=== PATIENT | male | born 1955 | race Caucasian/White ===

== ENCOUNTER 2017-06-09 09:55 | Emergency (ER) | payer OTHER ==
[2017-06-09 12:11] VITALS: BP 148/86
[2017-06-09] MEDS ORDERED: Acetaminophen 325 MG Tab PO ONE (14:30)
--- NOTE | 2017-06-09 14:35 | EDM.PDOC ---
ED HPI GENERAL MEDICAL PROBLEM - General Chief Complaint: Headache Stated Complaint: SINKABLE EPISODE Time Seen by Provider: 06/09/17 11:39 Source of Information: Reports: Patient History Limitations: Reports: No Limitations - History of Present Illness INITIAL COMMENTS - FREE TEXT/NARRATIVE: This patient comes in complaining of a headache and a near syncopal episode. He describes the headache as a frontal headache he says he rarely ever has a headache and this is worse than anything he's ever had in his life. Headache started about 7:30 AM today. 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 He was standing at the time and suddenly he felt weak like he might pass out. He denied any chest pain or palpitations he denied any kind of flu symptoms. His blood sugar was taken while at work and was 111 area he does take warfarin and he had a blood clot and his left lung along time ago so he's been on warfarin for something like 10 years. Last INR checked about a month ago. He does have diabetes and takes metformin Frontal Headache Pain Score (Numeric/FACES): 6 - Related Data Allergies Allergy/AdvReac Type Severity Reaction Status Date / Time No Known Allergies Allergy Verified 06/09/17 11:04 Home Meds: Home Meds Brimonidine [Alphagan 0.2% Ophth Soln] 1 drop TOP Q12H 07/31/15 [History] Ranitidine HCl [Zantac 75] 75 mg PO ASDIRECTED PRN 07/31/15 [History] Warfarin [Coumadin] 1 tab PO DAILY 07/31/15 [History] metFORMIN HCl [Glucophage] 1,000 mg PO BID 07/31/15 [History] metroNIDAZOLE [metroNIDAZOLE 0.75% Cream] 1 dose TOP ASDIRECTED 07/31/15 [ History] Lisinopril [Lisinopril] 1 tab PO DAILY 06/09/17 [History] Omeprazole [Omeprazole] 1 tab PO DAILY 06/09/17 [History] PARoxetine [Paxil] 1 tab PO DAILY 06/09/17 [History] atorvaSTATin [Lipitor] 1 tab PO DAILY 06/09/17 [History] glipiZIDE [Glipizide ER] 1 tab PO DAILY 06/09/17 [History] Past Medical History HEENT History: Reports: Glaucoma, Impaired Vision Respiratory History: Reports: PE Gastrointestinal History: Reports: GERD Musculoskeletal History: Reports: Other (See Below) Other Musculoskeletal History: L side face fx r leg fx Neurological History: Reports: Brain Injury, Concussion, Head Trauma Psychiatric History: Reports: Mood Swings Endocrine/Metabolic History: Reports: Diabetes, Type II Hematologic History: Reports: Anticoagulation Therapy Dermatologic History: Reports: Other (See Below) Other Dermatologic History: Brown spot r rastafari - Infectious Disease History Infectious Disease History: Reports: Chicken Pox - Past Surgical History GI Surgical History: Reports: Esophageal Dilatation Musculoskeletal Surgical History: Reports: Knee Replacement, Other (See Below) Other Musculoskeletal Surgeries/Procedures:: surgery to right foot Social & Family History - Tobacco Use Smoking Status *Q: Never Smoker Second Hand Smoke Exposure: No - Recreational Drug Use Recreational Drug Use: No ED ROS GENERAL - Review of Systems Review Of Systems: See Below Constitutional: Reports: Weakness, Diaphoresis HEENT: Reports: No Symptoms Respiratory: Reports: No Symptoms Cardiovascular: Reports: No Symptoms. Denies: Chest Pain, Dyspnea on Exertion ( Medicare) Endocrine: Reports: No Symptoms GI/Abdominal: Reports: No Symptoms Musculoskeletal: Reports: No Symptoms Skin: Reports: No Symptoms Neurological: Reports: No Symptoms Psychiatric: Reports: No Symptoms Hematologic/Lymphatic: Reports: No Symptoms Immunologic: Reports: No Symptoms - Physical Exam Exam: See Below Exam Limited By: No Limitations General Appearance: Alert, WD/WN, Mild Distress Eye Exam: Bilateral Eye: EOMI, Normal Inspection, PERRL Ears: Normal TMs Nose: Normal Inspection Throat/Mouth: Normal Inspection Head Exam: Atraumatic Neck: Supple Respiratory/Chest: Lungs Clear Cardiovascular: Normal Peripheral Pulses, Regular Rate, Rhythm, No Murmur GI/Abdominal: Soft, Non-Tender Neuro Exam (Abbreviated): Alert, Oriented, CN II-XII Intact, Normal Cognition Back Exam: Normal Inspection Extremities: Normal Inspection Psychiatric: Normal Affect Skin Exam: Warm, Dry Course - Vital Signs Last Recorded V/S: Last Vital Signs Temp 36.8 C 06/09/17 11:02 Pulse 60 06/09/17 12:07 Resp 18 06/09/17 12:07 BP 148/86 H 06/09/17 12:07 Pulse Ox 99 06/09/17 12:07 - Orders/Labs/Meds Orders: Active Orders 24 hr Category Date Time Status EKG Documentation Completion [RC] ASDIRECTED Care 06/09/17 11:53 Active Chest 1V Frontal [CR] Urgent Exams 06/09/17 11:52 Taken Head wo Cont [CT] Stat Exams 06/09/17 12:49 Taken Acetaminophen [Tylenol] Med 06/09/17 14:30 Once 650 mg PO NOW ONE EKG 12 Lead [EK] Urgent Ther 06/09/17 11:52 Ordered Labs: Laboratory Tests 06/09/17 06/09/17 06/09/17 Range/Units 12:07 12:07 12:07 WBC 6.0 (4.5-11.0) K/uL RBC 4.68 (4.30-5.90) M/uL Hgb 13.6 (12.0-15.0) g/dL Hct 41.5 (40.0-54.0) % MCV 89 (80-98) fL MCH 29 (27-31) pg MCHC 33 (32-36) % Plt Count 284 (150-400) K/uL Neut % (Auto) 67 H (36-66) % Lymph % (Auto) 18 L (24-44) % [place] % (Auto) 10 H (2-6) % Eos % (Auto) 5 H (2-4) % Baso % (Auto) 1 (0-1) % PT (9.5-12.0) sec INR (0.80-1.20) D-Dimer, Quantitative 122 (0.0-400.0) ng/mL Sodium (140-148) mmol/L Potassium (3.6-5.2) mmol/L Chloride (100-108) mmol/L Carbon Dioxide (21-32) mmol/L Anion Gap (5.0-14.0) mmol/L BUN (7-18) mg/dL Creatinine (0.8-1.3) mg/dL Est Cr Clr Drug Dosing mL/min Estimated GFR (MDRD) (>60) Glucose (74-106) mg/dL Calcium (8.5-10.1) mg/dL Total Bilirubin (0.2-1.0) mg/dL AST (15-37) U/L ALT (12-78) U/L Alkaline Phosphatase (46-116) U/L Troponin I < 0.017 (0.000-0.056) ng/mL Total Protein (6.4-8.2) g/dL Albumin (3.4-5.0) g/dL Globulin (2.3-3.5) g/dL Albumin/Globulin Ratio (1.2-2.2) 06/09/17 06/09/17 Range/Units 12:07 12:07 WBC (4.5-11.0) K/uL RBC (4.30-5.90) M/uL Hgb (12.0-15.0) g/dL Hct (40.0-54.0) % MCV (80-98) fL MCH (27-31) pg MCHC (32-36) % Plt Count (150-400) K/uL Neut % (Auto) (36-66) % Lymph % (Auto) (24-44) % [place] % (Auto) (2-6) % Eos % (Auto) (2-4) % Baso % (Auto) (0-1) % PT 14.8 H (9.5-12.0) sec INR 1.37 H (0.80-1.20) D-Dimer, Quantitative (0.0-400.0) ng/mL Sodium 142 (140-148) mmol/L Potassium 5.0 (3.6-5.2) mmol/L Chloride 107 (100-108) mmol/L Carbon Dioxide 28 (21-32) mmol/L Anion Gap 7.3 (5.0-14.0) mmol/L BUN 18 (7-18) mg/dL Creatinine 1.2 (0.8-1.3) mg/dL Est Cr Clr Drug Dosing 61.75 mL/min Estimated GFR (MDRD) > 60 (>60) Glucose 84 (74-106) mg/dL Calcium 8.9 (8.5-10.1) mg/dL Total Bilirubin 0.2 (0.2-1.0) mg/dL AST 31 (15-37) U/L ALT 61 (12-78) U/L Alkaline Phosphatase 95 (46-116) U/L Troponin I (0.000-0.056) ng/mL Total Protein 7.2 (6.4-8.2) g/dL Albumin 3.7 (3.4-5.0) g/dL Globulin 3.5 (2.3-3.5) g/dL Albumin/Globulin Ratio 1.1 L (1.2-2.2) - Radiology Interpretation Free Text/Narrative:: Head CT showed no acute intracranial process. Chest x-ray showed normal heart size normal lung markings. Chest x-ray read by me - Re-Assessments/Exams Free Text/Narrative Re-Assessment/Exam: 06/09/17 14:35 EKG shows normal sinus rhythm at 62 bpm there are no ischemic changes. Free Text/Narrative Re-Assessment/Exam: 06/09/17 14:35 At time of discharge patient says his headache has eased up a lot but still there are little bit and would like some Tylenol Departure - Departure Time of Disposition: 14:36 Disposition: Home, Self-Care 01 Condition: Fair Clinical Impression: Migraine, Near syncope - Discharge Information Referrals: PCP,None [Primary Care Provider] - Additional Instructions: Continue all your usual medications. Use Tylenol as needed for the headache. Follow package instructions. Be sure to continue eating a well-balanced diet and check your blood sugar frequently. Your INR was a little bit low at 1.37 so you should talk to your doctor about whether or not your warfarin or Coumadin needs to be adjusted - My Orders Last 24 Hours: My Active Orders 06/09/17 11:52 Chest 1V Frontal [CR] Urgent EKG 12 Lead [EK] Urgent 06/09/17 11:53 EKG Documentation Completion [RC] ASDIRECTED 06/09/17 12:49 Head wo Cont [CT] Stat 06/09/17 14:30 Acetaminophen [Tylenol] 650 mg PO NOW ONE - Assessment/Plan Last 24 Hours: My Active Orders 06/09/17 11:52 Chest 1V Frontal [CR] Urgent EKG 12 Lead [EK] Urgent 06/09/17 11:53 EKG Documentation Completion [RC] ASDIRECTED 06/09/17 12:49 Head wo Cont [CT] Stat 06/09/17 14:30 Acetaminophen [Tylenol] 650 mg PO NOW ONE
--- NOTE | 2017-06-10 10:19 | CR ---
Chest 1V Frontal INDICATION: near syncope COMPARISON: 12/19/2007 FINDINGS: AP portable chest. Heart size normal. Lungs are clear. No pleural effusion.
== END 2017-06-09 14:55 | disposition home or self-care (01) ==
LOC: JP.ED 09:55
DX: G43.909 Migraine, unspecified, not intractable, without status migrainosus (principal); R55 Syncope and collapse; K21.9 Gastro-esophageal reflux disease without esophagitis; E11.9 Type 2 diabetes mellitus without complications; Z79.84 Long term (current) use of oral hypoglycemic drugs; Z79.899 Other long term (current) drug therapy
CPT/HCPCS: 36415; 70450; 71045; 80053; 84484; 85025; 85379; 85610; 93005; 99285; A9270

== ENCOUNTER 2018-11-29 09:23 | Emergency (ER) | payer OTHER ==
[2018-11-29 09:43] VITALS: BP 135/72; PULSE 59
--- NOTE | 2018-11-29 09:51 | EDM.PDOC ---
ED HPI GENERAL MEDICAL PROBLEM - General Chief Complaint: General Stated Complaint: LIGHT HEADED, DIZZINESS Time Seen by Provider: 11/29/18 09:30 Source of Information: Reports: Patient History Limitations: Reports: No Limitations - History of Present Illness INITIAL COMMENTS - FREE TEXT/NARRATIVE: 63-year-old male with chronic mild headaches and dizziness had started his shift but then developed a headache and dizziness and thought he should leave. He came into the emergency room for a work note for today and to be able to return tomorrow. His symptoms have basically resolved. He does not want to return to work today. This is an ongoing recurring symptom that has been worked up several times by his primary provider. He has no illness, fever, shortness of breath, chest pain or other complaint. Onset: Sudden (Symptoms started rather suddenly within the last 2 hours) Associated Symptoms: Reports: Headaches, Malaise, Other (Dizziness, lightheaded) . Denies: Confusion, Chest Pain, Cough, Diaphoresis Denies Pain Score (Numeric/FACES): 0 - Related Data Allergies Allergy/AdvReac Type Severity Reaction Status Date / Time No Known Allergies Allergy Verified 11/29/18 09:32 Home Meds: Home Meds Brimonidine [Alphagan 0.2% Ophth Soln] 1 drop TOP Q12H 07/31/15 [History] Ranitidine HCl [Zantac 75] 75 mg PO ASDIRECTED PRN 07/31/15 [History] Warfarin [Coumadin] 1 tab PO DAILY 07/31/15 [History] metFORMIN HCl [Glucophage] 1,000 mg PO BID 07/31/15 [History] metroNIDAZOLE [metroNIDAZOLE 0.75% Cream] 1 dose TOP ASDIRECTED 07/31/15 [ History] Lisinopril 1 tab PO DAILY 06/09/17 [History] Omeprazole 1 tab PO DAILY 06/09/17 [History] PARoxetine [Paxil] 1 tab PO DAILY 06/09/17 [History] atorvaSTATin [Lipitor] 1 tab PO DAILY 06/09/17 [History] glipiZIDE [Glipizide ER] 1 tab PO DAILY 06/09/17 [History] Past Medical History HEENT History: Reports: Glaucoma, Impaired Vision Respiratory History: Reports: PE Gastrointestinal History: Reports: GERD Musculoskeletal History: Reports: Other (See Below) Other Musculoskeletal History: L side face fx r leg fx Neurological History: Reports: Brain Injury, Concussion, Head Trauma Psychiatric History: Reports: Mood Swings Endocrine/Metabolic History: Reports: Diabetes, Type II Hematologic History: Reports: Anticoagulation Therapy Dermatologic History: Reports: Other (See Below) Other Dermatologic History: Brown spot r buddhist - Infectious Disease History Infectious Disease History: Reports: Chicken Pox - Past Surgical History GI Surgical History: Reports: Esophageal Dilatation Musculoskeletal Surgical History: Reports: Knee Replacement, Other (See Below) Other Musculoskeletal Surgeries/Procedures:: surgery to right foot Social & Family History - Tobacco Use Smoking Status *Q: Never Smoker Second Hand Smoke Exposure: No - Caffeine Use Caffeine Use: Reports: Energy Drinks, Tea - Alcohol Use Days Per Week of Alcohol Use: 0 - Recreational Drug Use Recreational Drug Use: No ED ROS GENERAL - Review of Systems Review Of Systems: See Below Constitutional: Reports: Malaise. Denies: Fever, Chills HEENT: Denies: Vision Change Respiratory: Denies: Shortness of Breath Cardiovascular: Denies: Chest Pain GI/Abdominal: Denies: Abdominal Pain, Nausea, Vomiting : Reports: No Symptoms Skin: Denies: Diaphoresis Neurological: Reports: Dizziness, Headache ED EXAM, GENERAL - Physical Exam Exam: See Below Exam Limited By: No Limitations General Appearance: Alert, No Apparent Distress Eye Exam: Bilateral Eye: Normal Inspection Head: Atraumatic Respiratory/Chest: No Respiratory Distress, Lungs Clear Cardiovascular: Regular Rate, Rhythm Extremities: Normal Inspection. No: Pedal Edema Neurological: Alert, Oriented, No Motor/Sensory Deficits, Other (Romberg is negative, no pronator drift) Psychiatric: Normal Affect, Normal Mood Course - Vital Signs Last Recorded V/S: Last Vital Signs Temp 97.3 F 11/29/18 09:45 Pulse 59 L 11/29/18 09:45 Resp 16 11/29/18 09:45 BP 135/72 11/29/18 09:45 Pulse Ox 97 11/29/18 09:45 - Re-Assessments/Exams Free Text/Narrative Re-Assessment/Exam: 11/29/18 09:50 Physically this patient looks healthy and can certainly return to work tomorrow. I told them I really don't have any physical reason for him to not work today if he wants to return but he elected not to. Departure - Departure Time of Disposition: 09:57 Disposition: Home, Self-Care 01 Condition: Good Clinical Impression: Dizziness Headache Qualifiers: Headache type: unspecified Headache chronicity pattern: acute headache Intractability: not intractable Qualified Code(s): R51 - Headache - Discharge Information Instructions: Dizziness, [id number] Referrals: PCP,None [Primary Care Provider] - Forms: ED Department Discharge Care Plan Goals: Return to work tomorrow unless still symptomatic. Rest today, increase diet and activity as tolerated.
== END 2018-11-29 09:57 | disposition home or self-care (01) ==
LOC: JP.ED 09:23
DX: R51 Headache (principal); R42 Dizziness and giddiness; K21.9 Gastro-esophageal reflux disease without esophagitis; E11.9 Type 2 diabetes mellitus without complications; Z79.84 Long term (current) use of oral hypoglycemic drugs; Z79.899 Other long term (current) drug therapy; Z79.01 Long term (current) use of anticoagulants
CPT/HCPCS: 99283

== ENCOUNTER 2019-04-11 09:55 | Emergency (ER) | payer OTHER ==
[2019-04-11 10:12] VITALS: BP 146/80; PULSE 87
[2019-04-11] MEDS ORDERED: Ondansetron 4 MG Tab.DIS PO ONE (10:23)
[2019-04-11] MEDS ORDERED: Ketorolac 60 MG/2 ML SDV IM ONE (10:24)
[2019-04-11] MEDS ORDERED: Acetaminophen/oxyCODONE 325-5 MG Tab PO STA (10:24)
--- NOTE | 2019-04-11 10:28 | EDM.PDOC ---
ED HPI GENERAL MEDICAL PROBLEM - General Chief Complaint: Flank Pain Stated Complaint: L FLANK PAIN Time Seen by Provider: 04/11/19 10:20 Source of Information: Reports: Patient, Old Records History Limitations: Reports: No Limitations - History of Present Illness INITIAL COMMENTS - FREE TEXT/NARRATIVE: 63 yo male here with constant L flank pain since last night. Has no hx of kidney stones. Denies fever, dysuria or hematuria. Has mild nausea. No pain with deep breathing or coughing. No rash. Pain not worse with movement. He took nothing for his pain before coming in today. No hx of shingles or the vaccine. No prior pain like this. Ate breakfast without issue today, no change in his appetite. Onset: Sudden Onset Date: 04/10/19 Duration: Hour(s):, Constant Location: Reports: Back (L flank) Quality: Reports: Ache Severity: Moderate Improves with: Reports: None Worsens with: Reports: None Context: Reports: Other (see HPI) Associated Symptoms: Reports: Nausea/Vomiting (no vomiting). Denies: Cough, Fever/Chills, Rash Treatments MOP MAKER: Reports: Other (see below) (none) Left Flank Pain Score (Numeric/FACES): 4 - Related Data Allergies Allergy/AdvReac Type Severity Reaction Status Date / Time No Known Allergies Allergy Verified 04/11/19 10:09 Home Meds: Home Meds Brimonidine [Alphagan 0.2% Ophth Soln] 1 drop TOP Q12H 07/31/15 [History] Ranitidine HCl [Zantac 75] 75 mg PO ASDIRECTED PRN 07/31/15 [History] Warfarin [Coumadin] 1 tab PO ASDIRECTED 07/31/15 [History] metFORMIN HCl [Glucophage] 1,000 mg PO BID 07/31/15 [History] metroNIDAZOLE [metroNIDAZOLE 0.75% Cream] 1 dose TOP ASDIRECTED 07/31/15 [ History] Lisinopril 1 tab PO DAILY 06/09/17 [History] PARoxetine [Paxil] 1 tab PO DAILY 06/09/17 [History] atorvaSTATin [Lipitor] 1 tab PO DAILY 06/09/17 [History] glipiZIDE [Glipizide ER] 1 tab PO DAILY 06/09/17 [History] Dulaglutide [Trulicity] 1.5 mg SQ WEEKLY 04/11/19 [History] Meloxicam [Mobic] 15 mg PO DAILY PRN #10 tablet 04/11/19 [Rx] Past Medical History HEENT History: Reports: Glaucoma, Impaired Vision Respiratory History: Reports: PE, Sleep Apnea Other Respiratory History: cpap Gastrointestinal History: Reports: GERD Musculoskeletal History: Reports: Back Pain, Chronic, Other (See Below) Other Musculoskeletal History: L side face fx r leg fx Neurological History: Reports: Brain Injury, Concussion, Head Trauma Psychiatric History: Reports: Mood Swings Endocrine/Metabolic History: Reports: Diabetes, Type II, Obesity/BMI 30+ Hematologic History: Reports: Anticoagulation Therapy Dermatologic History: Reports: Other (See Below) Other Dermatologic History: Brown spot r mormon - Infectious Disease History Infectious Disease History: Reports: Chicken Pox - Past Surgical History Head Surgeries/Procedures: Reports: None HEENT Surgical History: Reports: None Respiratory Surgical History: Reports: None GI Surgical History: Reports: Esophageal Dilatation Endocrine Surgical History: Reports: None Neurological Surgical History: Reports: Other (See Below) Musculoskeletal Surgical History: Reports: Knee Replacement, Other (See Below) Other Musculoskeletal Surgeries/Procedures:: surgery to right foot Dermatological Surgical History: Reports: None Social & Family History - Tobacco Use Smoking Status *Q: Never Smoker Second Hand Smoke Exposure: No - Caffeine Use Caffeine Use: Reports: Tea - Recreational Drug Use Recreational Drug Use: No ED ROS GENERAL - Review of Systems Review Of Systems: See Below Constitutional: Reports: No Symptoms HEENT: Reports: No Symptoms Respiratory: Reports: No Symptoms Cardiovascular: Reports: No Symptoms GI/Abdominal: Reports: Nausea. Denies: Abdominal Pain, Constipation, Diarrhea, Vomiting : Reports: No Symptoms Musculoskeletal: Reports: Back Pain Skin: Reports: No Symptoms Neurological: Reports: No Symptoms Psychiatric: Reports: No Symptoms ED EXAM,LOWER BACK PAIN/INJURY - Physical Exam Exam: See Below Exam Limited By: No Limitations General Appearance: Alert, WD/WN, No Apparent Distress, Obese Eye Exam: Bilateral Eye: Normal Inspection Ears: Hearing Grossly Normal Nose: Normal Inspection, No Blood Throat/Mouth: Normal Inspection, Normal Lips, Normal Oropharynx, Normal Voice, No Airway Compromise Head: Atraumatic, Normocephalic Neck: Normal Inspection Respiratory/Chest: No Respiratory Distress, Lungs Clear, Normal Breath Sounds, No Accessory Muscle Use, Other (no pain with coughing or deep breathing.) Cardiovascular: Regular Rate, Rhythm, No Edema GI/Abdominal: Normal Bowel Sounds, Soft, Non-Tender, No Distention Back Exam: Normal Inspection, Full Range of Motion (without increased pain). No : CVA Tenderness (R), CVA Tenderness (L), Decreased Range of Motion, Muscle Spasm, Paraspinal Tenderness, Vertebral Tenderness Extremities: Normal Inspection, Normal Range of Motion, Non-Tender, No Pedal Edema Neurological: Alert, Normal Mood/Affect, CN II-XII Intact, No Motor/Sensory Deficits, Oriented x 3 Psychiatric: Normal Affect, Normal Mood Skin Exam: Warm, Dry, Intact, Normal Color, No Rash, Other (no skin tenderness) Course - Vital Signs Last Recorded V/S: Last Vital Signs Temp 36.3 C 04/11/19 10:13 Pulse 87 04/11/19 10:13 Resp 16 04/11/19 10:13 BP 146/80 H 04/11/19 10:13 Pulse Ox 95 04/11/19 10:13 - Orders/Labs/Meds Orders: Active Orders 24 hr Category Date Time Status Iopamidol [Isovue-300 (61%)] Med 04/11/19 11:30 Active 100 ml IV . DIRECTED Sodium Chloride 0.9% [Normal Saline] 100 ml Med 04/11/19 11:30 Active IV ASDIRECTED Medication Orders Sodium Chloride (Normal Saline) 100 mls @ 3 mls/sec IV ASDIRECTED FRANKY Last Admin: 04/11/19 11:42 Dose: 3 mls/sec Iopamidol (Isovue-300 (61%)) 100 ml IV . DIRECTED FRANKY Last Admin: 04/11/19 11:42 Dose: 100 ml Labs: Laboratory Tests 04/11/19 04/11/19 04/11/19 Range/Units 10: 10:34 10:34 WBC 5.4 (4.5-11.0) K/uL RBC 4.55 (4.30-5.90) M/uL Hgb 13.9 (12.0-15.0) g/dL Hct 41.8 (40.0-54.0) % MCV 92 (80-98) fL MCH 31 (27-31) pg MCHC 33 (32-36) % Plt Count 305 (150-400) K/uL Sodium 133 L (140-148) mmol/L Potassium 4.5 (3.6-5.2) mmol/L Chloride 99 L (100-108) mmol/L Carbon Dioxide 26 (21-32) mmol/L Anion Gap 12.5 (5.0-14.0) mmol/L BUN 18 (7-18) mg/dL Creatinine 1.3 (0.8-1.3) mg/dL Est Cr Clr Drug Dosing 57.41 mL/min Estimated GFR (MDRD) 56 L (>60) Glucose 195 H (74-106) mg/dL Calcium 9.1 (8.5-10.1) mg/dL Urine Color Yellow (YELLOW) Urine Appearance Clear (CLEAR) Urine pH 5.5 (5.0-8.0) Ur Specific [place] > 1.030 (1.008-1.030) Urine Protein Trace H (NEGATIVE) mg/dL Urine Glucose (UA) 250 H (NEGATIVE) mg/dL Urine Ketones Negative (NEGATIVE) mg/dL Urine Occult Blood Negative (NEGATIVE) Urine Nitrite Negative (NEGATIVE) Urine Bilirubin Negative (NEGATIVE) Urine Urobilinogen 0.2 (0.2-1.0) EU/dL Ur Leukocyte Esterase Negative (NEGATIVE) Urine RBC Not seen (0-5) Urine WBC Not seen (0-5) Ur Epithelial Cells Rare Amorphous Sediment Rare Urine Bacteria Not seen Urine Mucus Not seen Meds: Medications Generic Name Dose Route Start Last Admin Trade Name Freq PRN Reason Stop Dose Admin Sodium Chloride 100 mls @ 3 mls/sec 04/11/19 11:30 04/11/19 11:42 Normal Saline IV 3 mls/sec ASDIRECTED FRANKY Administration Iopamidol 100 ml 04/11/19 11:30 04/11/19 11:42 Isovue-300 (61%) IV 100 ml . DIRECTED FRANKY Administration Discontinued Medications Generic Name Dose Route Start Last Admin Trade Name Freq PRN Reason Stop Dose Admin Sodium Chloride 500 mls @ 1,000 mls/hr 04/11/19 11:20 Normal Saline IV 04/11/19 11:49 .BOLUS ONE Ketorolac Tromethamine 60 mg 04/11/19 10:24 Toradol IM 04/11/19 10:25 ONETIME ONE Ketorolac Tromethamine 30 mg 04/11/19 10:33 04/11/19 10:38 Toradol IM 04/11/19 10:34 30 mg ONETIME ONE Administration Ondansetron HCl 4 mg 04/11/19 10:23 04/11/19 10:38 Zofran Odt PO 04/11/19 10:24 4 mg ONETIME ONE Administration Oxycodone/Acetaminophen 1 tab 04/11/19 10:24 04/11/19 10:38 Percocet 325-5 Mg PO 04/11/19 10:25 1 tab ONETIME STA Administration Sodium Chloride 10 ml 04/11/19 11:22 04/11/19 11:42 Saline Flush FLUSH 04/11/19 11:23 10 ml ONETIME ONE Administration - Radiology Interpretation Free Text/Narrative:: CT abd/pelvis with IV contrast- Impression: Sigmoid diverticulosis without evidence of diverticulitis. Hepatic cysts. Diffuse fatty infiltration of the liver. Degenerative change of the spine. Please note that all CT scans at this facility use dose modulation, iterative reconstruction, and/or weight-based dosing when appropriate to reduce radiation dose to as low as reasonably achievable. Dictated by Destiney Alberts MD @ Apr 11 2019 12:02PM Departure - Departure Time of Disposition: 12:17 Disposition: Home, Self-Care 01 Condition: Good Clinical Impression: Back pain Qualifiers: Back pain location: thoracic back pain Chronicity: acute Back pain laterality: left Qualified Code(s): M54.6 - Pain in thoracic spine - Discharge Information *PRESCRIPTION DRUG MONITORING PROGRAM REVIEWED*: No *COPY OF PRESCRIPTION DRUG MONITORING REPORT IN PATIENT JANIE: No Referrals: PCP,None [Primary Care Provider] - Forms: ED Department Discharge Additional Instructions: Take Mobic daily with supper. Add acetaminophen up to 1000 mg every 6 hrs for added relief. Recheck with your provider later this next week. Sepsis Event Note - Evaluation Sepsis Screening Result: No Definite Risk - Focused Exam Vital Signs: Vital Signs Temp Pulse Resp BP Pulse Ox 04/11/19 10:13 36.3 C 87 16 146/80 H 95 04/11/19 10:05 36.3 C 87 16 146/80 H 95 Date Exam was Performed: 04/11/19 Time Exam was Performed: 12:14 - My Orders Last 24 Hours: My Active Orders 04/11/19 11:30 Iopamidol [Isovue-300 (61%)] 100 ml IV . DIRECTED Sodium Chloride 0.9% [Normal Saline] 100 ml IV ASDIRECTED - Assessment/Plan Last 24 Hours: My Active Orders 04/11/19 11:30 Iopamidol [Isovue-300 (61%)] 100 ml IV . DIRECTED Sodium Chloride 0.9% [Normal Saline] 100 ml IV ASDIRECTED
[2019-04-11] MEDS ORDERED: Ketorolac 30 MG/ML SDV IM ONE (10:33)
[2019-04-11] MEDS ORDERED: Sodium Chloride 0.9% 500 ML IV ONE (11:20)
[2019-04-11] MEDS ORDERED: Sodium Chloride 0.9% 10 ML Syringe FLUSH ONE (11:22)
[2019-04-11] MEDS ORDERED: Sodium Chloride 0.9% 100 ML IV SCH (11:30)
[2019-04-11] MEDS ORDERED: Iopamidol 612 MG/ML 100 ML Bottle IV SCH (11:30)
--- NOTE | 2019-04-11 12:05 | CRLCT ---
Indication: Left mid back pain. Technique: Multiple contiguous axial images were obtained from the lung bases through the symphysis pubis after the intravenous administration of 100 cc Isovue-300. Please note that all CT scans at this facility use dose modulation, iterative reconstruction, and/or weight-based dosing when appropriate to reduce radiation dose to as low as reasonably achievable. Comparison: None Findings: Bibasilar atelectasis is identified. The heart is normal in size. A moderate-sized hiatal hernia is identified. Mild diffuse fatty infiltration of the liver is identified. Several hepatic cysts are identified. No intrahepatic biliary ductal dilatation is identified. The gallbladder, pancreas, spleen, adrenals, and kidneys are normal. No intrahepatic biliary ductal dilatation is identified. No hydronephrosis is seen. In the pelvis, the urinary bladder is grossly normal. The prostate is grossly normal. Sigmoid diverticulosis is identified. There is no evidence of diverticulitis. A moderate amount of stool is identified within the colon. The appendix is normal in caliber. No free air or free fluid is identified within the abdomen or pelvis. Mild vascular calcifications are identified. Degenerative changes of the spine are identified. No lytic or blastic lesions are identified. A Schmorl`s node is identified along the superior endplate of L2. No fracture or subluxation is identified. Mild dextroscoliosis of the spine is identified. Vacuum disc phenomenon is identified at L4-L5 and minimally at L5-S1. Impression: Sigmoid diverticulosis without evidence of diverticulitis. Hepatic cysts. Diffuse fatty infiltration of the liver. Degenerative change of the spine. Please note that all CT scans at this facility use dose modulation, iterative reconstruction, and/or weight-based dosing when appropriate to reduce radiation dose to as low as reasonably achievable. Dictated by Destiney Alberts MD @ Apr 11 2019 12:02PM Signed by Dr. Destiney Alberts @ Apr 11 2019 12:04PM
== END 2019-04-11 12:34 | disposition home or self-care (01) ==
LOC: JP.ED 09:55
DX: M54.6 Pain in thoracic spine (principal); E11.9 Type 2 diabetes mellitus without complications; K21.9 Gastro-esophageal reflux disease without esophagitis; Z86.711 Personal history of pulmonary embolism; E66.9 Obesity, unspecified; Z68.31 Body mass index [BMI] 31.0-31.9, adult; Z79.01 Long term (current) use of anticoagulants; Z79.84 Long term (current) use of oral hypoglycemic drugs; Z79.899 Other long term (current) drug therapy
CPT/HCPCS: 36415; 74177; 80048; 81001; 85027; 96372; 99284; A9270; J1885; J7050; Q9967